=== PATIENT | female | born 1990 | race Caucasian/White ===

== ENCOUNTER 2020-04-02 06:55 | Emergency (ER) | payer OTHER ==
[2020-04-02 07:47] VITALS: BMI 35.2
[2020-04-02 09:23] VITALS: BP 117/50; PULSE 117; TEMP 98.4
== END 2020-04-02 09:15 | disposition home or self-care (01) ==
LOC: JER 06:55
DX: O26.899 Other specified pregnancy related conditions, unspecified trimester (principal); R05 Cough; R09.81 Nasal congestion; R52 Pain, unspecified; R10.9 Unspecified abdominal pain; Z3A.21 21 weeks gestation of pregnancy
CPT/HCPCS: 99284-25; C9803; U0003

== ENCOUNTER 2020-07-19 22:51 | Inpatient (IN) | payer OTHER ==
[2020-07-20] MEDS ORDERED: AMPICILLIN - 2 GM in SODIUM CHLORIDE 100 ML IVPB ONE (00:30)
[2020-07-20] MEDS ORDERED: ELECTROLYTE-148 SOLN 500 ML IV ONE (00:30)
[2020-07-20] MEDS ORDERED: ELECTROLYTE-148 SOLN 1,000 ML IV SCH (01:00)
[2020-07-20] MEDS ORDERED: AMPICILLIN SODIUM 2 GM VIAL ONE (01:31)
[2020-07-20 01:45] LABS: BASO % 0.9 % (0-2.0); EOS % 0.3 % (0-4.5); HEMATOCRIT 38.7 % (32.4-45.2); HEMOGLOBIN 12.8 GM/dL (10.7-15.3); LYMPH % 20.7 % (8-40); MCH 29.3 pg (25.7-33.7); MEAN CELL VOLUME 88.6 fl (80-96); MEAN PLT VOLUME 9.8 fl (7.5-11.1); MONO % 6.3 % (3.8-10.2); NEUT % 71.8 % (42.8-82.8); PLATELET COUNT 253 K/MM3 (134-434); RBC 4.37 M/mm3 (3.60-5.2); RDW 13.7 % (11.6-15.6); WHITE BLOOD COUNT 11.2 K/mm3 (4.0-10.0)
[2020-07-20 02:02] LABS: BLOOD UREA NITROGEN 13.2 mg/dL (7-18); CALCIUM 8.8 mg/dL (8.5-10.1)
[2020-07-20 02:07] LABS: CREATININE 0.6 mg/dL (0.55-1.3)
[2020-07-20] MEDS ORDERED: BUTORPHANOL TARTRATE 2 MG/ML VIAL ONE (02:28)
[2020-07-20] MEDS ORDERED: PROMETHAZINE HCL 25 MG/1 ML VIAL ONE (02:28)
[2020-07-20 03:23] VITALS: BMI 37.8
[2020-07-20] MEDS ORDERED: OXYTOCIN 20 UNITS in 0.9% NS 20 UNIT/1,000 ML INFUS.BAG IV ONE (04:03)
[2020-07-20 04:14] LABS: HIV INTERPRETATION NEGATIVE (NEGATIVE)
[2020-07-20] MEDS ORDERED: AMPICILLIN SODIUM 1 GM VIAL ONE (04:17)
[2020-07-20 04:30] LABS: INR 0.91 (0.83-1.09); PROTHROMBIN TIME (PATIENT) 11.1 SEC (9.7-13.0)
[2020-07-20] MEDS ORDERED: AMPICILLIN - 1 GM in SODIUM CHLORIDE 100 ML IVPB SCH (04:30)
[2020-07-20] MEDS ORDERED: LIDOCAINE HCL 1% PRESERVATIVE FREE - 30ML VIAL ONE (04:33)
[2020-07-20] MEDS ORDERED: BUTORPHANOL TARTRATE 1 MG/ML VIAL IVPB ONE (05:02)
[2020-07-20] MEDS ORDERED: PROMETHAZINE HCL 25 MG/1 ML VIAL IVPUSH ONE (05:02)
[2020-07-20] MEDS ORDERED: BISACODYL 10 MG SUPP.RECT RC PRN (05:03)
[2020-07-20] MEDS ORDERED: oxyCODONE HCL 5 MG TABLET PO PRN (05:03)
[2020-07-20] MEDS ORDERED: METHYLERGONOVINE MALEATE 0.2 MG/1 ML AMP IM PRN (05:03)
[2020-07-20] MEDS ORDERED: WITCH HAZEL 50% (TUCKS) 40 PAD/JAR PAD TP PRN (05:03)
[2020-07-20] MEDS ORDERED: BENZOCAINE 28 GM HEMORRHOIDAL OINTMENT TP PRN (05:03)
[2020-07-20] MEDS ORDERED: BENZOCAINE 20% 57 GM BOTTLE TP PRN (05:03)
[2020-07-20] MEDS ORDERED: DEXTROSE 5%-LACTATED RINGERS 1,000 ML IV SCH (05:15)
[2020-07-20] MEDS ORDERED: OXYTOCIN 20 UNITS in 0.9% NS 20 UNIT/1,000 ML INFUS.BAG IV SCH (05:15)
[2020-07-20] MEDS ORDERED: IBUPROFEN 600 MG TABLET (FP) PO ONE (05:37)
[2020-07-20] MEDS ORDERED: ACETAMINOPHEN 325 MG TABLET (FP) ONE (05:37)
[2020-07-20] MEDS ORDERED: DIPHTH,PERTUSS(ACELL),TET 0.5 ML DISP.SYRIN IM ONE (10:00)
[2020-07-20] MEDS ORDERED: FLU VACCINE (FLULAVAL) PF 60 MCG/0.5 ML SYRINGE 2020-2021 IM ONE (10:00)
[2020-07-20] MEDS: PRENATAL VITAMINS W/ FOLIC ACID TABLET (FP) PO SCH (10:17)
[2020-07-20] MEDS: ACETAMINOPHEN 325 MG TABLET (FP) PO PRN ×2 (12:17→19:58)
[2020-07-20] MEDS: IBUPROFEN 600 MG TABLET (FP) PO PRN ×2 (12:18→19:59)
[2020-07-21 08:29] LABS: BASO % 0.5 % (0-2.0); EOS % 0.9 % (0-4.5); HEMATOCRIT 31.6 % (32.4-45.2); HEMOGLOBIN 10.5 GM/dL (10.7-15.3); LYMPH % 31.8 % (8-40); MCH 29.5 pg (25.7-33.7); MCHC 33.3 g/dl (32.0-36.0); MEAN CELL VOLUME 88.7 fl (80-96); MEAN PLT VOLUME 9.4 fl (7.5-11.1); MONO % 5.6 % (3.8-10.2); NEUT % 61.2 % (42.8-82.8); PLATELET COUNT 203 K/MM3 (134-434); RBC 3.56 M/mm3 (3.60-5.2); RDW 14.1 % (11.6-15.6); WHITE BLOOD COUNT 9.4 K/mm3 (4.0-10.0)
[2020-07-21] MEDS: PRENATAL VITAMINS W/ FOLIC ACID TABLET (FP) PO SCH (10:06)
[2020-07-21] MEDS: ACETAMINOPHEN 325 MG TABLET (FP) PO PRN ×2 (13:34→22:12)
[2020-07-21] MEDS: IBUPROFEN 600 MG TABLET (FP) PO PRN ×2 (13:35→22:12)
[2020-07-21] MEDS ORDERED: SENNOSIDES/DOCUSATE COMBO (SENNA PLUS) TABLET (UD) PO PRN (22:00)
[2020-07-22] MEDS: PRENATAL VITAMINS W/ FOLIC ACID TABLET (FP) PO SCH (09:44)
[2020-07-22 10:44] VITALS: BP 119/72; PULSE 90; TEMP 97.8
== END 2020-07-22 12:55 | disposition home or self-care (01) | DRG 560 ==
LOC: JLDR 22:51 → J3W 07-20 06:25
PROVIDERS: ADMIT Obstetrics & Gynecology; ATTEND Obstetrics & Gynecology
PROC: 10E0XZZ Delivery of Products of Conception, External Approach (ICD-10-PCS; principal; 2020-07-20)
PROC: 0W8NXZZ Division of Female Perineum, External Approach (ICD-10-PCS; 2020-07-20)
DX: O42.02 Full-term premature rupture of membranes, onset of labor within 24 hours of rupture (principal); Z3A.37 37 weeks gestation of pregnancy; Z37.0 Single live birth
CPT/HCPCS: 36415; 59409; 80048; 85025; 85461; 85610; 85730; 86780; 86850; 86870; 86900; 86901; 86902; 86999; 87389; 90715; C9803; G0008; Q2036; U0003